=== PATIENT | male | born 2000 | race Hispanic/Latino ===

== ENCOUNTER 2019-08-29 16:18 | Day surgery (SDC) | payer OTHER ==
[~2019-08-29] VITALS: Ht 177.8 cm; Wt 86.3 kg
[2019-08-29 16:51] LABS: BASO % 0.2 % (0.0-1.0); HEMATOCRIT 46.8 % (42.0-52.0); HEMOGLOBIN 15.1 g/dl (13.5-17.5); LYMPH # 0.6 10^3/uL (1.5-5.0); LYMPH % 4.4 % (24.0-44.0); MEAN CORPUSCULAR HEMOGLOBIN 24.8 pg (27.0-33.0); MEAN CORPUSCULAR HGB CONC 32.3 g/dl (32.0-36.5); MEAN CORPUSCULAR VOLUME 76.7 fl (80.0-96.0); MONO # 0.5 10^3/uL (0.0-0.8); MONO % 3.6 % (0.0-5.0); NEUTROPHILS # 12.4 10^3/uL (1.5-8.5); NEUTROPHILS % 91.4 % (36.0-66.0); PLATELET COUNT, AUTOMATED 178 10^3/uL (150-450); WHITE BLOOD COUNT 13.6 10^3/uL (4.0-10.0)
[2019-08-29 17:15] LABS: ALBUMIN 4.5 GM/DL (3.2-5.2); ALT/SGPT 21 U/L (12-78); BILIRUBIN,DIRECT 0.2 MG/DL (0.0-0.2); BILIRUBIN,TOTAL 0.4 MG/DL (0.2-1.0); BLOOD UREA NITROGEN 9 MG/DL (7-18); CALCIUM LEVEL 9.2 MG/DL (8.5-10.1); CARBON DIOXIDE LEVEL 28 MEQ/L (21-32); CHLORIDE LEVEL 104 MEQ/L (98-107); CREATININE FOR GFR 0.95 MG/DL (0.70-1.30); GLUCOSE, FASTING 100 MG/DL (70-100); LIPASE 80 U/L (73-393); POTASSIUM SERUM 3.9 MEQ/L (3.5-5.1); SODIUM LEVEL 137 MEQ/L (136-145); TOTAL PROTEIN 7.8 GM/DL (6.4-8.2)
[2019-08-29] MEDS ORDERED: MORPHINE 4 MG/ML 1ML VIAL/SYRINGE (J2270) IV ONE (17:15)
[2019-08-29] MEDS ORDERED: ONDANSETRON 4MG/2ML VIAL IV ONE (17:15)
[2019-08-29] MEDS ORDERED: NS 1,000 ML IV ONE (17:15)
[2019-08-29] MEDS ORDERED: ISOVUE-370 76% 100ML VIAL As Ordered ONE (17:16)
--- NOTE | 2019-08-29 18:01 | REPVR ---
PROCEDURE INFORMATION: Exam: CT Abdomen And Pelvis With Contrast Exam date and time: 08/29/2019 5:19 PM Age: 19 years old Clinical indication: Abdominal pain; Additional info: Rlq abd pain, nv TECHNIQUE: Imaging protocol: Computed tomography of the abdomen and pelvis with intravenous contrast. Radiation optimization: All CT scans at this facility use at least one of these dose optimization techniques: automated exposure control; mA and/or kV adjustment per patient size (includes targeted exams where dose is matched to clinical indication); or iterative reconstruction. Contrast material: ISOVUE 375; Contrast volume: 100 ml; Contrast route: IV; COMPARISON: No relevant prior studies available. FINDINGS: Lungs: No suspicious mass or airspace process in the visualized lung bases. Liver: Liver appears normal with no focal abnormality. Gallbladder and bile ducts: Gallbladder is present and shows no evidence of gallstone. Pancreas: Pancreas appears normal. No focal mass or peripancreatic inflammation. Spleen: Spleen appears homogeneous without focal mass. Adrenals: Adrenal glands are normal in appearance. Kidneys and ureters: Kidneys appear normal, with no stone, solid mass or hydronephrosis. Stomach and bowel: No evidence of small bowel obstruction. No evidence of acute diverticulitis. Appendix: Appendix is abnormal. Appendicolith is seen within the appendix lumen. Distal to this, the appendix is fluid-filled and dilated , measuring up to 12 mm diameter. No fluid collection or evidence of perforation. Intraperitoneal space: No pneumoperitoneum. Vasculature: No aortic aneurysm. Main portal and splenic veins enhance normally. Lymph nodes: No enlarged lymph nodes. Bladder: Urinary bladder appears normal. Bones/joints: Bony structures show no acute fracture or destructive process. Soft tissues: No concerning focal abnormality of the extra-abdominal and pelvic soft tissues. IMPRESSION: Acute appendicitis, appendix being dilated to 12 mm diameter with fluid-filled lumen distal to an appendicolith. No perforation or abscess Electronically signed by: Greyson Young On 08/29/2019 18:01:09 PM
[2019-08-29] MEDS ORDERED: PIPERACILLIN/TAZOBACTAM SOD 3.375 GM in D5W MINI-BAG PLUS 50 ML IV ONE (18:15)
[2019-08-29] MEDS ORDERED: propofoL 200 MG/20 ML VIAL As Ordered ONE ×2 (18:33→18:38)
[2019-08-29] MEDS ORDERED: LIDOCAINE 2% 100MG/5ML SDV (FOR ANES.) As Ordered ONE (18:34)
[2019-08-29] MEDS ORDERED: ROCURONIUM BROMIDE 50 MG/5 ML VIAL As Ordered ONE (18:34)
[2019-08-29] MEDS ORDERED: dexameTHASONE 4 MG/ML 1ML VIAL (J1100 PER 1MG) As Ordered ONE (18:34)
[2019-08-29] MEDS ORDERED: MIDAZOLAM INJ 2MG/2ML VIAL (J2250 PER 1MG) As Ordered ONE (18:36)
[2019-08-29] MEDS ORDERED: fentaNYL 250 MCG/5 ML INJECTION (J3010) As Ordered ONE (18:37)
[2019-08-29] MEDS ORDERED: SUCCINYLCHOLINE 100 MG/5 ML SYRINGE (J0330) As Ordered ONE ×2 (18:38→19:19)
[2019-08-29] MEDS ORDERED: BUPIVACAINE/EPIN 0.25% 30 ML VIAL As Ordered ONE (19:01)
[2019-08-29] MEDS ORDERED: ONDANSETRON 4MG/2ML VIAL IV PRN ×2 (19:15→20:15)
[2019-08-29] MEDS ORDERED: ACETAMINOPHEN TAB 650MG DOSE (2X325MG) PO PRN (19:15)
[2019-08-29] MEDS ORDERED: KETOROLAC 30 MG/ML 1ML VIAL IV PRN (19:15)
[2019-08-29] MEDS ORDERED: NORCO, ANEXSIA 5/325MG TABLET (HYDROcodone/ACETAMINOPHEN) PO PRN (19:15)
[2019-08-29] MEDS ORDERED: SUGAMMADEX SODIUM 500 MG/5 ML VIAL (BRIDION) As Ordered ONE (19:19)
[2019-08-29] MEDS ORDERED: ACETAMINOPHEN 1000MG 100ML IV BTL (OFIRMEV) (J0131 PER 10MG) As Ordered ONE (19:19)
[2019-08-29] MEDS ORDERED: ONDANSETRON 4MG/2ML VIAL As Ordered ONE (19:19)
[2019-08-29] MEDS ORDERED: KETOROLAC 60 MG/2 ML VIAL As Ordered ONE (19:20)
[2019-08-29] MEDS ORDERED: LR 1,000 ML IV SCH (20:15)
[2019-08-29] MEDS ORDERED: fentaNYL 100 MCG/2 ML INJECTION (J3010) IV PRN (20:15)
[2019-08-29] MEDS ORDERED: oxyCODONE 5MG TAB PO PRN (20:15)
[2019-08-29] MEDS ORDERED: oxyCODONE 5MG TAB As Ordered ONE (20:22)
[2019-08-29] MEDS: NS 1,000 ML IV SCH (20:32)
[2019-08-29 21:05] VITALS: BP 138/81
[2019-08-29 21:35] VITALS: BP 133/67
[2019-08-29 22:05] VITALS: BP 134/66
[2019-08-29] MEDS: SENOKOT S TAB PO SCH (22:32)
[2019-08-29 23:05] VITALS: BP 112/59
[2019-08-30 00:05] VITALS: BP 110/57
[2019-08-30] MEDS: PIPERACILLIN/TAZOBACTAM SOD 3.375 GM in D5W MINI-BAG PLUS 50 ML IV SCH ×2 (00:18→05:09)
[2019-08-30 01:05] VITALS: BP 116/64
[2019-08-30 02:05] VITALS: BP 109/53
[2019-08-30] MEDS: NS 1,000 ML IV SCH (05:10)
[2019-08-30 05:38] LABS: BASO % 0.1 % (0.0-1.0); HEMOGLOBIN 13.4 g/dl (13.5-17.5); LYMPH # 0.6 10^3/uL (1.5-5.0); LYMPH % 3.7 % (24.0-44.0); MEAN CORPUSCULAR HGB CONC 32.7 g/dl (32.0-36.5); MEAN CORPUSCULAR VOLUME 76.5 fl (80.0-96.0); MONO % 6.2 % (0.0-5.0); NEUTROPHILS % 89.6 % (36.0-66.0); PLATELET COUNT, AUTOMATED 156 10^3/uL (150-450); RED BLOOD COUNT 5.36 10^6/uL (4.30-6.10); WHITE BLOOD COUNT 15.6 10^3/uL (4.0-10.0)
[2019-08-30 06:00] VITALS: BP 114/53
[2019-08-30] MEDS: SENOKOT S TAB PO SCH (08:41)
[2019-08-30] MEDS ORDERED: HYDR-3715 PO (09:12)
[2019-08-30] MEDS ORDERED: AUGM875T28 PO (09:12)
[2019-08-30 10:00] VITALS: BP 134/61
--- NOTE | 2019-09-04 07:21 | RO ---
DATE OF PROCEDURE: 08/29/2019 PREOPERATIVE DIAGNOSIS: Appendicitis. POSTOPERATIVE DIAGNOSIS: Appendicitis. PROCEDURE: Laparoscopic appendectomy. SURGEON: Dr. Guerra TRUCK DRIVER HELPER: None. ANESTHESIA: General. ESTIMATED BLOOD LOSS: 5. COMPLICATIONS: None. INDICATION FOR PROCEDURE: Patient is a 19-year-old male, presented with abdominal pain that started at 10 a.m. this morning. He came into emergency room ended being diagnosed with acute appendicitis. Recommendation was to proceed with laparoscopic appendectomy. Risks and benefits of the procedure not limited but including bleeding, infection, hernia formation, damage to surrounding structures, need for further surgery was discussed in detail with the patient. Informed consent was obtained and procedure was planned. DESCRIPTION OF PROCEDURE: Patient was brought back to operating room #3. After sufficient sedation, the abdomen was sterilely prepped and draped. Next, a time-out was done to confirm proper patient and proper procedure. Following that a 5 mm incision made in left lower quadrant. Veress needle inserted and the abdomen was insufflated to 50 mmHg. Next, the Veress needle was remove and a 5 mm Optiview port was used to gain access to the abdomen. Once the abdomen was entered, an 8 mm port site supraumbilically in midline, another 5 mm port suprapubically in the midline. The appendix was identified in the right lower quadrant. It was then elevated up in the air. Mesoappendix was dissected down to the base of the appendix using the Enseal. Once the base was reached, it was ligated with two PDS Endoloops and then amputated using the Enseal. The appendix was then brought out through the 8 mm port site. Once the appendix was out the incision was irrigated with saline due to a little bit of leakage. The abdomen was then desufflated. Skin incisions were closed with #4-0 Vicryl subcuticular sutures. The abdomen cleaned and dried. Steri-Strips, 4 x 4, and tape were applied thus ending procedure. Dictation.
--- NOTE | 2019-09-04 08:37 | DSES ---
DATE OF ADMISSION: 08/29/2019 DATE OF DISCHARGE: 08/30/2019 ADMISSION DIAGNOSIS: Appendicitis. DISCHARGE DIAGNOSIS: Appendicitis. HOSPITAL COURSE: The patient is a 19-year-old male who presented yesterday with abdominal pain since 10 a.m., found to have acute appendicitis. He was brought to the operating room for urgent laparoscopic appendectomy last evening. Postoperatively he has been doing well, tolerating diet, pain is controlled, he is ambulating and urinating without any difficulty. His white count did go up a little bit overnight from 13.6 to 15.6. However, his surgery was uncomplicated and I am comfortable sending him home today. He can shower starting this evening. No baths for 5 days. No lifting more than 20 pounds for 2 weeks. I sent him home with a pain pill as well as Augmentin to take for 7 days. All of his questions are answered and he will followup with me in the office in 2 weeks.
== END 2019-08-30 12:53 | disposition home or self-care (01) ==
LOC: M ED 16:18 → M SDC 18:15 → M MSPAV 21:05 → M SDC 08-30 12:53
PROVIDERS: ATTEND Surgery
DX: K35.890 Other acute appendicitis without perforation or gangrene (principal)
CPT/HCPCS: 36415; 44970; 74177; 80048; 80076; 83690; 85025; 88304; 96361; 96365; 96375; 99284; J0131; J0330; J1100; J1885; J2250; J2270; J2405; J2543; J3010; Q9967

== ENCOUNTER 2020-05-08 20:29 | Emergency (ER) | payer OTHER ==
[~2020-05-08] VITALS: Ht 177.8 cm; Wt 84.0 kg
[2020-05-08 20:29] VITALS: BP 133/86
[~2020-05-08 20:29] MED LIST: AUGM875T28 PO; HYDR-3715 PO
--- NOTE | 2020-05-08 21:32 | REPVR ---
PROCEDURE INFORMATION: Exam: XR Right Toe(s) Exam date and time: 05/08/2020 8:53 PM Age: 19 years old Clinical indication: Pain; Toes; Right; Patient HX: Dropped weight on second toe; Additional info: Injury TECHNIQUE: Imaging protocol: XR Right toes. Views: Minimum 2 views. COMPARISON: No relevant prior studies available. FINDINGS: Bones/joints: There are radiodensities in the soft tissues along the medial aspect of the distal phalanx of the 2nd toe which could represent small avulsion fractures. On the AP view there is a cortical irregularity periarticular at the base of the distal phalanx. Soft tissues: Soft tissue swelling. IMPRESSION: Possible avulsion fractures medial aspect distal phalanx of the right 2nd toe. Electronically signed by: Yeny Gerardo On 05/08/2020 21:32:13 PM
== END 2020-05-08 22:46 | disposition home or self-care (01) ==
LOC: M ED 20:29
DX: S92.321A Displaced fracture of second metatarsal bone, right foot, initial encounter for closed fracture (principal); W22.8XXA Striking against or struck by other objects, initial encounter; Y92.89 Other specified places as the place of occurrence of the external cause; Y93.B3 Activity, free weights